=== PATIENT | male | born 1980 | race Caucasian/White ===

== ENCOUNTER 2019-07-16 10:26 | Emergency (ER) | payer BC ==
[~2019-07-16] VITALS: Ht 190.5 cm; Wt 99.8 kg
[2019-07-16] MEDS ORDERED: ZYRTEC10 M3 PO (13:17)
[2019-07-16] MEDS ORDERED: ZOVIRAX800 M1 PO (13:17)
== END 2019-07-16 13:40 | disposition home or self-care (01) ==
LOC: ER 10:26
DX: R21 Rash and other nonspecific skin eruption (principal); R05 Cough

== ENCOUNTER 2020-09-11 16:01 | Emergency (ER) | payer BC ==
[~2020-09-11] VITALS: Ht 193 cm; Wt 102.1 kg
[~2020-09-11 16:01] MED LIST: ZOVIRAX800 M1 PO; ZYRTEC10 M3 PO
[2020-09-11] MEDS ORDERED: NORFLEX100MG PO (17:33)
[2020-09-11] MEDS ORDERED: DICLOFENAC SODI75 MG PO (17:33)
== END 2020-09-11 17:43 | disposition home or self-care (01) ==
LOC: ER 16:01
DX: M54.89 Other dorsalgia (principal); M54.2 Cervicalgia; M62.838 Other muscle spasm